=== PATIENT | male | born 1960 | race Two or more races ===

== ENCOUNTER 2021-06-12 15:20 | Inpatient (IN) | payer MEDICAID, OTHER ==
[~2021-06-12] VITALS: Ht 167.6 cm; Wt 71.7 kg
[2021-06-12 16:51] LABS: CHLORIDE 115 mEq/L (98-107); EOSINOPHILS % 2.2 % (0.0-5.0); HEMATOCRIT. 21.6 % (42.0-52.0); HEMOGLOBIN. 7.5 g/dL (14.0-18.0); LYMPHOCYTES % 15.4 % (20.0-50.0); MEAN CORPUSCULAR HEMOGLOBIN 31.7 pg (28.0-32.0); MEAN CORPUSCULAR VOLUME 91.5 fL (80.0-94.0); MEAN PLATELET VOLUME 9.1 fl (7.4-10.4); NEUTROPHILS % 73.4 % (40.0-76.0); PLATELET 146 x1000/uL (130-400); RED BLOOD CELL COUNT 2.36 mill/uL (4.7-6.1); RED CELL DISTRIBUTION WIDTH 14.3 % (11.6-14.6)
[2021-06-12] MEDS ORDERED: SODIUM CHLORIDE 0.9% 1,000 ML IV ONE (17:15)
[2021-06-12 23:19] LABS: CLARITY URINE CLEAR (CLEAR); COLOR URINE YELLOW (YELLOW); KETONES URINE NEGATIVE (NEGATIVE); LEUKOCYTE ESTERASE URINE NEGATIVE (NEGATIVE); NITRITE URINE NEGATIVE (NEGATIVE); OCCULT BLOOD URINE NEGATIVE (NEGATIVE); PH URINE 5.5 (4.5-8.0); PROTEIN URINE 4+ (NEGATIVE); SPECIFIC GRAVITY URINE 1.016 (1.005-1.030); UROBILINOGEN URINE 0.2 E.U./dL (0.2-1.0)
[2021-06-12] MEDS ORDERED: CLONIDINE 0.1MG TABLET PO PRN (23:45)
[2021-06-13 02:00] VITALS: BP 153/84
[2021-06-13] MEDS ORDERED: ACETAMINOPHEN 325MG TABLET PO PRN (02:15)
[2021-06-13] MEDS ORDERED: DEXTROSE 50% WATER 50ML SYRINGE IV PRN (02:15)
[2021-06-13 04:00] VITALS: BP 115/79
[2021-06-13] MEDS ORDERED: CLON0.2T PO (05:50)
[2021-06-13] MEDS ORDERED: HYDR-4135 PO (05:51)
[2021-06-13] MEDS ORDERED: FURO-151 PO (05:52)
[2021-06-13] MEDS ORDERED: LINA5TAB PO (05:52)
[2021-06-13] MEDS ORDERED: AMOX-494 MT (05:53)
[2021-06-13] MEDS: BLOOD SUGAR DIAGNOSTIC STRIP TEST SCH ×4 (06:50→21:52)
[2021-06-13] MEDS: INSULIN LISPRO 100 UNITS/ML SUBCUT SCH ×4 (06:51→21:51)
[2021-06-13] MEDS: SEVELAMER CARBONATE 800 MG TABLET PO SCH ×3 (08:37→17:56)
[2021-06-13] MEDS: AMLODIPINE 10MG TABLET PO SCH (08:38)
[2021-06-13] MEDS: METOPROLOL TARTRATE 50MG TABLET PO SCH ×2 (08:38→21:50)
[2021-06-13 09:49] LABS: PHOSPHORUS 4.7 mg/dL (2.5-4.9)
[2021-06-13 10:00] LABS: BASOPHILS % 0.6 % (0.0-2.0); EOSINOPHILS % 2.4 % (0.0-5.0); HEMATOCRIT. 22.9 % (42.0-52.0); HEMOGLOBIN. 7.8 g/dL (14.0-18.0); LYMPHOCYTES % 12.3 % (20.0-50.0); MEAN CORPUSCULAR HEMOGLOBIN 31.1 pg (28.0-32.0); MEAN CORPUSCULAR VOLUME 91.8 fL (80.0-94.0); MEAN PLATELET VOLUME 9.1 fl (7.4-10.4); MONOCYTES % 5.6 % (2.0-8.0); NEUTROPHILS % 79.1 % (40.0-76.0); PLATELET 142 x1000/uL (130-400); RED CELL DISTRIBUTION WIDTH 14.4 % (11.6-14.6)
[2021-06-13 13:15] LABS: BG BASE EXCESS -8.8 mmol/L (-2.0-2.0); BG CARBOXYHEMOGLOBIN 0.7 % (0.5-1.5); BG DEOXYHEMOGLOBIN 5.3 % (0.0-5.0); BG FRACTION INSPIRED OXYGEN 21; BG METHEMOGLOBIN 0.3 % (0.0-1.5); BG OXYGEN SATURATION 94.6 % (92.0-98.5); BG OXYHEMOGLOBIN 93.7 % (94.0-97.0); BG PCO2 30.5 mmHg (35.0-45.0); BG PH 7.339 (7.350-7.450); BG PO2 74.1 mmHg (75.0-100.0); BG TOTAL HEMOGLOBIN 8.2 g/dL (12.0-18.0); BG VENT MODE ROOM AIR
[2021-06-13] MEDS: FUROSEMIDE 40MG/4ML VIAL IVP SCH ×2 (14:25→21:49)
[2021-06-13 20:00] VITALS: BP 124/64
[2021-06-13] MEDS ORDERED: EPOETIN ALFA 10000UNITS/ML VIAL SUBCUT SCH (21:00)
[2021-06-13] MEDS: ATORVASTATIN CALCIUM 40MG TABLET PO SCH (21:50)
[2021-06-14] VITALS (13 sets, daily range): BP systolic 110–154; BP diastolic 63–79
[2021-06-14 06:04] LABS: BASOPHILS % 0.8 % (0.0-2.0); EOSINOPHILS % 2.8 % (0.0-5.0); HEMOGLOBIN. 7.1 g/dL (14.0-18.0); LYMPHOCYTES % 20.8 % (20.0-50.0); MEAN CORPUSCULAR HEMOGLOBIN 31.1 pg (28.0-32.0); MEAN CORPUSCULAR VOLUME 91.3 fL (80.0-94.0); MEAN PLATELET VOLUME 9.4 fl (7.4-10.4); MONOCYTES % 8.6 % (2.0-8.0); PLATELET 157 x1000/uL (130-400); RED BLOOD CELL COUNT 2.28 mill/uL (4.7-6.1); RED CELL DISTRIBUTION WIDTH 14.4 % (11.6-14.6)
[2021-06-14 06:34] LABS: PHOSPHORUS 4.3 mg/dL (2.5-4.9)
[2021-06-14] MEDS: BLOOD SUGAR DIAGNOSTIC STRIP TEST SCH ×4 (06:44→20:07)
[2021-06-14] MEDS: INSULIN LISPRO 100 UNITS/ML SUBCUT SCH ×4 (06:44→20:08)
[2021-06-14] MEDS: SEVELAMER CARBONATE 800 MG TABLET PO SCH ×3 (06:46→17:59)
[2021-06-14 08:30] LABS: HEMATOCRIT. 20.8 % (42.0-52.0)
[2021-06-14] MEDS: FUROSEMIDE 40MG/4ML VIAL IVP SCH ×2 (09:31→20:48)
[2021-06-14] MEDS: AMLODIPINE 10MG TABLET PO SCH (09:32)
[2021-06-14] MEDS: METOPROLOL TARTRATE 50MG TABLET PO SCH ×2 (09:32→20:48)
[2021-06-14 10:25] LABS: HEPATITIS B SURFACE ANTIGEN NEGATIVE
[2021-06-14] MEDS: ATORVASTATIN CALCIUM 40MG TABLET PO SCH (20:48)
[2021-06-15] VITALS (21 sets, daily range): BP systolic 121–168; BP diastolic 66–89
[2021-06-15 06:16] LABS: BASOPHILS % 0.8 % (0.0-2.0); EOSINOPHILS % 2.8 % (0.0-5.0); HEMATOCRIT. 23.2 % (42.0-52.0); MEAN CORPUSCULAR HEMOGLOBIN 30.9 pg (28.0-32.0); MEAN CORPUSCULAR VOLUME 90.1 fL (80.0-94.0); MEAN PLATELET VOLUME 9.8 fl (7.4-10.4); MONOCYTES % 8.7 % (2.0-8.0); NEUTROPHILS % 67.7 % (40.0-76.0); PLATELET 138 x1000/uL (130-400); RED BLOOD CELL COUNT 2.57 mill/uL (4.7-6.1); RED CELL DISTRIBUTION WIDTH 14.4 % (11.6-14.6)
[2021-06-15] MEDS: BLOOD SUGAR DIAGNOSTIC STRIP TEST SCH ×4 (06:23→20:23)
[2021-06-15] MEDS: INSULIN LISPRO 100 UNITS/ML SUBCUT SCH ×4 (07:40→20:36)
[2021-06-15] MEDS: SEVELAMER CARBONATE 800 MG TABLET PO SCH ×3 (07:40→18:28)
[2021-06-15 07:58] LABS: PROTHROMBIN TIME 10.9 sec (9.6-11.0)
[2021-06-15] MEDS: METOPROLOL TARTRATE 50MG TABLET PO SCH ×2 (09:00→20:34)
[2021-06-15] MEDS ORDERED: FENTANYL CITRATE/PF 50MCG/ML 2ML VIAL ONE (09:01)
[2021-06-15] MEDS ORDERED: CEFAZOLIN 1000MG PREMIX 50 ML IV ONE (09:01)
[2021-06-15 09:07] LABS: IMMUNOGLOBULIN A 181 mg/dL (90-386); IMMUNOGLOBULIN G 452 mg/dL (603-1613); IMMUNOGLOBULIN M 102 mg/dL (20-172)
[2021-06-15] MEDS ORDERED: LIDOCAINE HCL 1% 20ML VIAL (Pyxis) INJ ONE (09:07)
[2021-06-15] MEDS ORDERED: HEPARIN 1000 UNITS/ML 10ML ONE (09:08)
[2021-06-15] MEDS ORDERED: FENTANYL CITRATE/PF 50MCG/ML 2ML VIAL IV ONE (09:45)
[2021-06-15] MEDS ORDERED: CEFAZOLIN 1000MG PREMIX 50 ML IV SCH (10:00)
[2021-06-15] MEDS: AMLODIPINE 10MG TABLET PO SCH (10:49)
[2021-06-15] MEDS: FUROSEMIDE 40MG/4ML VIAL IVP SCH ×2 (10:49→20:33)
[2021-06-15 11:16] LABS: PHOSPHORUS 4.2 mg/dL (2.5-4.9)
[2021-06-15 17:28] LABS: HEPATITIS B SURFACE AB < 3.1 mIU/mL
[2021-06-15] MEDS: ATORVASTATIN CALCIUM 40MG TABLET PO SCH (20:33)
[2021-06-16] VITALS: BP 122/68
[2021-06-16 04:00] VITALS: BP 126/59
[2021-06-16 06:36] LABS: HEMOGLOBIN. 8.1 g/dL (14.0-18.0); MEAN CORPUSCULAR VOLUME 89.5 fL (80.0-94.0)
[2021-06-16] MEDS: BLOOD SUGAR DIAGNOSTIC STRIP TEST SCH ×4 (06:41→21:06)
[2021-06-16 06:46] LABS: BASOPHILS % 0.9 % (0.0-2.0); EOSINOPHILS % 2.8 % (0.0-5.0); HEMATOCRIT. 23.4 % (42.0-52.0); LYMPHOCYTES % 16.2 % (20.0-50.0); MEAN CORPUSCULAR HEMOGLOBIN 30.9 pg (28.0-32.0); MONOCYTES % 10.9 % (2.0-8.0); NEUTROPHILS % 69.2 % (40.0-76.0); PLATELET 142 x1000/uL (130-400); RED BLOOD CELL COUNT 2.61 mill/uL (4.7-6.1); RED CELL DISTRIBUTION WIDTH 13.7 % (11.6-14.6)
[2021-06-16] MEDS: INSULIN LISPRO 100 UNITS/ML SUBCUT SCH ×4 (06:47→21:00)
[2021-06-16] MEDS: SEVELAMER CARBONATE 800 MG TABLET PO SCH ×3 (06:47→17:45)
[2021-06-16 06:52] LABS: PHOSPHORUS 3.7 mg/dL (2.5-4.9)
[2021-06-16 08:00] VITALS: BP 141/64
[2021-06-16] MEDS: AMLODIPINE 10MG TABLET PO SCH (08:42)
[2021-06-16] MEDS: METOPROLOL TARTRATE 50MG TABLET PO SCH ×2 (08:43→21:06)
[2021-06-16] MEDS: FUROSEMIDE 40MG/4ML VIAL IVP SCH ×2 (08:43→21:03)
[2021-06-16 12:00] VITALS: BP 133/66
[2021-06-16 16:00] VITALS: BP_SYST 133; BP_SYST 135; BP_DIAS 64; BP_DIAS 69
[2021-06-16 20:00] VITALS: BP 149/80
[2021-06-16] MEDS ORDERED: EPOETIN ALFA-EPBX 10,000 UNIT/ML VIAL SUBCUT SCH (21:00)
[2021-06-16] MEDS: ATORVASTATIN CALCIUM 40MG TABLET PO SCH (21:02)
[2021-06-17 00:01] VITALS: BP 129/62
[2021-06-17 03:56] VITALS: BP 120/66
[2021-06-17] MEDS: BLOOD SUGAR DIAGNOSTIC STRIP TEST SCH ×2 (06:09→12:34)
[2021-06-17] MEDS: INSULIN LISPRO 100 UNITS/ML SUBCUT SCH ×2 (06:09→12:41)
[2021-06-17 06:11] LABS: BASOPHILS % 0.8 % (0.0-2.0); EOSINOPHILS % 2.9 % (0.0-5.0); HEMATOCRIT. 23.6 % (42.0-52.0); HEMOGLOBIN. 8.1 g/dL (14.0-18.0); MEAN CORPUSCULAR HEMOGLOBIN 30.9 pg (28.0-32.0); MEAN CORPUSCULAR VOLUME 89.7 fL (80.0-94.0); MEAN PLATELET VOLUME 9.3 fl (7.4-10.4); MONOCYTES % 11.9 % (2.0-8.0); NEUTROPHILS % 69.4 % (40.0-76.0); PLATELET 138 x1000/uL (130-400); RED BLOOD CELL COUNT 2.63 mill/uL (4.7-6.1); RED CELL DISTRIBUTION WIDTH 14.3 % (11.6-14.6)
[2021-06-17 06:24] LABS: PHOSPHORUS 3.8 mg/dL (2.5-4.9)
[2021-06-17] MEDS ORDERED: FUROSEMIDE 40MG TABLET PO SCH (09:15)
[2021-06-17] MEDS ORDERED: HEPARIN SODIUM 1,000 UNIT/1ML VIAL IV NR (09:45)
[2021-06-17] MEDS: AMLODIPINE 10MG TABLET PO SCH (10:22)
[2021-06-17] MEDS: METOPROLOL TARTRATE 50MG TABLET PO SCH (10:22)
[2021-06-17] MEDS: SEVELAMER CARBONATE 800 MG TABLET PO SCH ×2 (10:22→12:34)
[2021-06-17 13:35] VITALS: BP 140/63
== END 2021-06-17 14:18 | disposition home or self-care (01) | DRG 469 ==
LOC: ER 15:20 → EDBEDREQ 18:04 → EDBEDREQTM 18:04 → 8WST 19:28 → EDBEDREQ 19:40 → EDBEDREQTM 19:40 → ENRESERV 22:04
PROVIDERS: ADMIT Internal Medicine; ATTEND Internal Medicine
PROC: 30233N1 Transfusion of Nonautologous Red Blood Cells into Peripheral Vein, Percutaneous Approach (ICD-10-PCS; 2021-06-14)
PROC: 0JH63XZ Insertion of Tunneled Vascular Access Device into Chest Subcutaneous Tissue and Fascia, Percutaneous Approach (ICD-10-PCS; principal; 2021-06-15)
PROC: 02HV33Z Insertion of Infusion Device into Superior Vena Cava, Percutaneous Approach (ICD-10-PCS; 2021-06-15)
PROC: B518ZZA Fluoroscopy of Superior Vena Cava, Guidance (ICD-10-PCS; 2021-06-15)
PROC: B548ZZA Ultrasonography of Superior Vena Cava, Guidance (ICD-10-PCS; 2021-06-15)
PROC: 5A1D70Z Performance of Urinary Filtration, Intermittent, Less than 6 Hours Per Day (ICD-10-PCS; 2021-06-15)
PROC: 5A1D70Z Performance of Urinary Filtration, Intermittent, Less than 6 Hours Per Day (ICD-10-PCS; 2021-06-17)
DX: N17.9 Acute kidney failure, unspecified (principal); J96.90 Respiratory failure, unspecified, unspecified whether with hypoxia or hypercapnia; E43 Unspecified severe protein-calorie malnutrition; I12.0 Hypertensive chronic kidney disease with stage 5 chronic kidney disease or end stage renal disease; J90 Pleural effusion, not elsewhere classified; J81.1 Chronic pulmonary edema; D64.9 Anemia, unspecified; E11.22 Type 2 diabetes mellitus with diabetic chronic kidney disease; E87.8 Other disorders of electrolyte and fluid balance, not elsewhere classified; E78.5 Hyperlipidemia, unspecified; N18.6 End stage renal disease; Z20.822 Contact with and (suspected) exposure to COVID-19; Z82.49 Family history of ischemic heart disease and other diseases of the circulatory system; Z83.3 Family history of diabetes mellitus; Z79.2 Long term (current) use of antibiotics; Z79.899 Other long term (current) drug therapy; Z68.25 Body mass index [BMI] 25.0-25.9, adult
CPT/HCPCS: 36415; 36558; 36600; 71045; 76770; 76937; 77001; 80048; 80053; 81003; 82375; 82784; 82805; 82962; 83036; 83735; 84100; 85025; 86160; 86334; 86705; 86706; 86709; 86803; 86850; 86900; 86920; 87340; 87426; 99152; 99153; 99291; C1750; C1769; C1887; J0690; J0885; J1644; J1815; J1940; J3010; J3490; J7030; L8514; P9016; G0500